=== PATIENT | female | born 1965 | race Caucasian/White ===

== ENCOUNTER 2018-05-20 20:23 | Emergency (ER) | payer OTHER ==
[~2018-05-20] VITALS: Ht 157.5 cm; Wt 86.1 kg
[2018-05-20 20:39] VITALS: Ht 157.5 cm; Wt 86.1 kg
[2018-05-21] MEDS ORDERED: KETOROLAC 30 MG INJ IM STA (00:18)
[2018-05-21] MEDS ORDERED: HYDROCODONE/APAP (5/325) TAB PO ONE (00:30)
[2018-05-21] MEDS ORDERED: NAPR-985 PO (01:05)
[2018-05-21] MEDS ORDERED: TRAM50TA2 PO (01:05)
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
[2018-05-21 01:38] VITALS: RESP 16
[2018-05-21 02:21] VITALS: BP 184/84; PULSE 55
== END 2018-05-21 03:30 | disposition left against medical advice (07) ==
LOC: E/R 20:23 → FTE 05-21 03:30
DX: M25.521 Pain in right elbow (principal); I10 Essential (primary) hypertension
CPT/HCPCS: 96372; J1885; Z7502; Z7610